=== PATIENT | female | born 1995 | race American Indian/Alaskan Native ===

== ENCOUNTER 2017-01-19 00:55 | Outpatient (CLI) | payer OTHER, MEDICAID ==
[2017-01-19 01:17] VITALS: BP 106/63
[2017-01-19] MEDS ORDERED: LACTATED RINGERS 500 ML IV ONE ×2 (01:39→03:00)
[2017-01-19] MEDS ORDERED: LACTATED RINGERS 1,000 ML IV ONE (01:57)
[2017-01-19 02:38] LABS: Basophils % (Auto) 0.1 % (0.0-1.8); Eosinophils % (Auto) 0.7 % (0.0-4.3); Hematocrit 33.5 % (30.3-42.9); Hemoglobin 11.3 gm/dl (10.1-14.3); Mean Corpuscular HGB Conc 34 % (30-34); Mean Corpuscular Hemoglobin 28 pg (28-32); Mean Corpuscular Volume 84 fl (79-97); Red Blood Count 3.99 M/mm3 (3.65-5.03); Red Cell Distribution Width 14.3 % (13.2-15.2); White Blood Count 8.3 K/mm3 (4.5-11.0)
[2017-01-19 02:40] LABS: Platelet Count 164 K/mm3 (140-440)
--- NOTE | 2017-01-19 09:54 | Ultrasound Report ---
ULTRASOUND BIOPHYSICAL PROFILE: History: well being Technique: Transabdominal ultrasound with Doppler interrogation. 2 - breathing movements 2 - movements 2 - posture and tone 2 - Qualitative amniotic fluid volume 8 - TOTAL SCORE OF POSSIBLE 8 Heart Rate (bpm) 150
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
== END 2017-01-19 05:00 | disposition home or self-care (01) ==
LOC: TRG 00:55
PROVIDERS: ATTEND Obstetrics & Gynecology
DX: O26.893 Other specified pregnancy related conditions, third trimester (principal); R10.9 Unspecified abdominal pain; V89.2XXA Person injured in unspecified motor-vehicle accident, traffic, initial encounter; Z3A.34 34 weeks gestation of pregnancy; Y93.89 Activity, other specified; Y92.89 Other specified places as the place of occurrence of the external cause; Y99.8 Other external cause status
CPT/HCPCS: 36415; 76816; 76819; 82731; 85025; 85460; 96360; J7120